=== PATIENT | male | born 1940 | race Caucasian/White ===

== ENCOUNTER 2016-12-30 15:45 | Emergency (ER) | payer MEDICARE, OTHER ==
[2016-12-30 15:55] VITALS: O2SAT 96
[2016-12-30] MEDS ORDERED: Sodium Chloride 0.9% 1000 ML 1,000 ML IV STA (15:57)
[2016-12-30 16:03] LABS: BASOPHIL % 0.3 % (0.0-0.4); Eosinophil % 2.8 % (0.00-5.0); Granulocytes % 74.9 % (36.0-66.0); Lymphocytes % 11.7 % (24.0-44.0); Mean Cell Volume 105.1 fl (78-100); Mean Platelet Volume 10.5 fl (6-9.5); Monocytes % 10.3 % (0.0-12.0); Platelet Count 167 K/mm3 (150-450); Red Blood Count 3.71 M/mm3 (4.1-5.6); Red Cell Distribution Width 14.4 % (11.5-14.0); White Blood Count 6.1 K/mm3 (4.0-10.5)
[2016-12-30] MEDS ORDERED: Sodium Chloride 0.9% 1000 ML 1,000 ML ONE (16:03)
[2016-12-30 16:10] LABS: Mean Corpuscular Hemoglobin 34.7 pg (26-32)
[2016-12-30 16:14] LABS: INR 2.3 (0.8-3.0); PROTIME 25.1 SECONDS (8.83-12.87)
--- NOTE | 2016-12-30 16:15 | ERPHSYRPT ---
- History of Present Illness Time Seen by Provider: 12/30/16 16:10 Source: patient, EMS Exam Limitations: no limitations Patient Subjective Stated Complaint: patietn was dizzy and fell at carwash, blacked out Triage Nursing Assessment: pt alert and oriented x3, skin tear on left elbow medics dressed it, skin tear and bump on right calf swelling and bruised out, patient states he lost consciousness and did urinate self when he became dizzy and fell at car wash. cellulitis bilAteral lower extremities Physician History: 76-year-old male with significant past medical history of atrial fibrillation, hypertension, congestive heart failure, coronary artery disease, atrial fibrillation was washing his car and suddenly he got dizzy and he almost passed out. Ambulance was called in and patient is transferred to the emergency room. Patient is alert, awake, oriented to time, place and person answer all the Mormon in the emergency room. Denies any headache, nausea, vomiting, diaphoresis or chest pain or dizziness. The last thing he remembered was he was washing the car and then he felt he is going to pass out. He has some bruises on his left elbow with some skin laceration as well as on his left leg. Timing/Duration: today Activities at Onset: activity (car wash) Severity of Pain-Max: none Severity of Pain-Current: none Modifying Factors: Improves With: nothing Nitro Today/Relief: no nitro taken today Aspirin Treatment Today: no aspirin today (patient on coumadin) Allergies/Adverse Reactions: No Known Drug Allergies Allergy (Unverified 07/06/16 16:44) Home Medications: Albuterol 2.5 mg/3 ml Neb [Proventil 2.5 mg/3 ml Neb] 2.5 mg IH BID PRN [History] Fluticasone/Vilanterol [Breo Ellipta 100-25 Mcg INH] 1 each IH DAILY 12/30/16 [ History] Levothyroxine Sodium 25 Mcg [Synthroid 25 Mcg] 25 mcg PO DAILY 12/30/16 [ History] Tamsulosin HCl 0.4 mg [Flomax 0.4 MG] 0.4 mg PO DAILY 12/30/16 [History] Torsemide [Demadex] 20 mg PO DAILY 12/30/16 [History] Valsartan [Diovan] 320 mg PO DAILY 12/30/16 [History] Warfarin Sodium 3 mg [Coumadin 3 MG] 3 mg PO UD 12/30/16 [History] Hx Tetanus, Diphtheria Vaccination/Date Given: Yes Hx Influenza Vaccination/Date Given: Yes Hx Pneumococcal Vaccination/Date Given: Yes Immunizations Up to Date: Yes - Review of Systems Constitutional: No Fever, No Chills Eyes: No Symptoms Ears, Nose, & Throat: No Symptoms Respiratory: No Cough, No Dyspnea Cardiac: No Chest Pain, No Edema, No Syncope Abdominal/Gastrointestinal: No Abdominal Pain, No Nausea, No Vomiting, No Diarrhea Genitourinary Symptoms: No Dysuria Musculoskeletal: Fall (syncopal episode), No Back Pain, No Neck Pain, No Deformity Skin: Cellulitis (both lower extrimities), Other (large hematoma on right leg, ) , No Rash Neurological: Dizziness, No Focal Weakness, No Sensory Changes Psychological: No Symptoms Endocrine: No Symptoms All Other Systems: Reviewed and Negative - Past Medical History Pertinent Past Medical History: Yes Cardiac History: Arrhythmia, Hypertension - Past Surgical History Past Surgical History: Yes Musculoskeletal: Orthopedic Surgery - Social History Smoking Status: Never smoker Drug Use: none Patient Lives Alone: No - Nursing Vital Signs Pulse Rate: 75 Respiratory Rate: 20 Pain Intensity: 0 - Physical Exam General Appearance: no apparent distress, alert Eye Exam: PERRL/EOMI, eyes nml inspection Ears, Nose, Throat Exam: normal ENT inspection, moist mucous membranes Neck Exam: normal inspection, non-tender, supple Respiratory Exam: crackles/rales, rhonchi, No respiratory distress Cardiovascular Exam: murmur (soft diastolic murmur left lower border), irregular , capillary refill 2-3 sec, No edema Gastrointestinal/Abdomen Exam: soft, No tenderness, No mass Back Exam: normal inspection, No CVA tenderness, No vertebral tenderness Extremity Exam: normal inspection, normal range of motion Neurologic Exam: alert, oriented x 3, cooperative, normal mood/affect, nml cerebellar function, sensation nml, No motor deficits Skin Exam: normal color, warm, dry Lymphatic Exam: No adenopathy SpO2: 96 Oxygen Delivery: Room Air - Course Nursing assessment & vital signs reviewed: Yes EKG Interpreted by Me: A-fib (controlled VR) Rhythm Strip: Atrial Fibrillation - Radiology Exams Chest X-ray Interpretation: Reviewed by me Ordered Tests: Active Orders 24 hr Category Date Time Status Piano And Organ Refinisher STAT Care 12/30/16 15:57 Active EKG-ER Only STAT Care 12/30/16 15:57 Active Oxygen-ED Only NASAL CANNULA 2 lpm Care 12/30/16 15:57 Active CHEST 1 VIEW (PORTABLE) Stat Exams 12/30/16 15:58 Taken CBC W DIFF Stat Lab 12/30/16 16:01 Completed CMP Stat Lab 12/30/16 16:01 Completed Lactic Acid Urgent Lab 12/30/16 15:57 Completed NT PRO BNP Stat Lab 12/30/16 16:01 Completed PROTIME WITH INR Stat Lab 12/30/16 16:01 Completed TROPONIN Q3H Lab 12/30/16 16:01 Completed TROPONIN Q3H Lab 12/30/16 19:00 Ordered TROPONIN Q3H Lab 12/30/16 22:00 Ordered TROPONIN Q3H Lab 12/31/16 01:00 Ordered TROPONIN Q3H Lab 12/31/16 04:00 Ordered Medication Summary Discontinued Medications Generic Name Dose Route Start Last Admin Trade Name Freq PRN Reason Stop Dose Admin Sodium Chloride 1,000 mls @ 999 mls/hr 12/30/16 15:57 12/30/16 16:08 Sodium Chloride 0.9% 1000 Ml IV 12/30/16 16:57 999 mls/hr .Q1H1M STA Administration Sodium Chloride Confirm 12/30/16 16:03 Sodium Chloride 0.9% 1000 Ml Administered 12/30/16 16:04 Dose 1,000 mls @ ud .ROUTE .STK-MED ONE Lab/Rad Data: Laboratory Result Diagrams 12/30/16 16:01 12/30/16 16:01 Laboratory Results 12/30/16 12/30/16 12/30/16 Range/Units 16:01 16:01 16:01 WBC (4.0-10.5) K/mm3 RBC (4.1-5.6) M/mm3 Hgb (12.5-18.0) gm/dl Hct (42-50) % MCV (78-100) fl MCH (26-32) pg MCHC (32-36) g/dl RDW (11.5-14.0) % Plt Count (150-450) K/mm3 MPV (6-9.5) fl Gran % (36.0-66.0) % Lymphocytes % (24.0-44.0) % Monocytes % (0.0-12.0) % Eosinophils % (0.00-5.0) % Basophils % (0.0-0.4) % Basophils # (0-0.4) INR 2.30 (0.8-3.0) Sodium 140 (136-145) mEq/L Potassium 4.4 (3.5-5.1) mEq/L Chloride 104 (98-107) mEq/L Carbon Dioxide 25.9 (21-32) mEq/L Anion Gap 14.2 (5-15) MEQ/L BUN 24 H (9-20) mg/dL Creatinine 1.22 (0.55-1.30) mg/dl Estimated GFR > 60 ML/MIN Glucose 104 (70-110) MG/DL Lactic Acid (0.4-2.0) Calcium 8.9 (8.5-10.1) mg/dL Total Bilirubin 1.2 H (0.2-1.0) mg/dL AST 29 (15-37) U/L ALT 28 (12-78) U/L Alkaline Phosphatase 103 (46-116) U/L Troponin I < 0.017 (0.000-0.056) ng/ml NT-Pro-B Natriuret Pep 1402 H (0-125) pg/ml Serum Total Protein 7.0 (6.4-8.2) gm/dL Albumin 3.5 (3.4-5.0) g/dL 12/30/16 12/30/16 Range/Units 16:01 15:57 WBC 6.1 (4.0-10.5) K/mm3 RBC 3.71 L (4.1-5.6) M/mm3 Hgb 12.9 (12.5-18.0) gm/dl Hct 39.0 L (42-50) % MCV 105.1 H (78-100) fl MCH 34.7 H (26-32) pg MCHC 33.1 (32-36) g/dl RDW 14.4 H (11.5-14.0) % Plt Count 167 (150-450) K/mm3 MPV 10.5 H (6-9.5) fl Gran % 74.9 H (36.0-66.0) % Lymphocytes % 11.7 L (24.0-44.0) % Monocytes % 10.3 (0.0-12.0) % Eosinophils % 2.8 (0.00-5.0) % Basophils % 0.3 (0.0-0.4) % Basophils # 0.02 (0-0.4) INR (0.8-3.0) Sodium (136-145) mEq/L Potassium (3.5-5.1) mEq/L Chloride (98-107) mEq/L Carbon Dioxide (21-32) mEq/L Anion Gap (5-15) MEQ/L BUN (9-20) mg/dL Creatinine (0.55-1.30) mg/dl Estimated GFR ML/MIN Glucose (70-110) MG/DL Lactic Acid 2.2 H (0.4-2.0) Calcium (8.5-10.1) mg/dL Total Bilirubin (0.2-1.0) mg/dL AST (15-37) U/L ALT (12-78) U/L Alkaline Phosphatase (46-116) U/L Troponin I (0.000-0.056) ng/ml NT-Pro-B Natriuret Pep (0-125) pg/ml Serum Total Protein (6.4-8.2) gm/dL Albumin (3.4-5.0) g/dL - Progress Progress: improved Air Movement: good Blood Culture(s) Obtained: No Antibiotics given: No Counseled pt/family regarding: lab results, diagnosis, need for follow-up (with his Oil Pipe Inspector Dr Bueno), rad results - Departure Time of Disposition: 17:26 Departure Disposition: Home Clinical Impression: Syncope, cardiogenic CHF (congestive heart failure), NYHA class II Qualifiers: Congestive heart failure type: combined Congestive heart failure chronicity: acute on chronic Qualified Code(s): I50.43 - Acute on chronic combined systolic (congestive) and diastolic (congestive) heart failure Atrial fibrillation Qualifiers: Atrial fibrillation type: chronic Qualified Code(s): I48.2 - Chronic atrial fibrillation Condition: Stable Critical Care Time: Yes Critical Care Time(excluding separately billable procedures): 30-74 minutes Referrals: CANDIDA CAPELLAN PLASTIC SHEETS SUPERVISOR [Primary Care Provider] - Instructions: Heart Failure Additional Instructions: Please continue all your home medications. Please follow up with your csr technician as soon as possible. Call your primary care physician and see him or her. If you cannot get hold of your csr technician's. Please follow the instructions given to you. Please take your medication as prescribed if given. If symptoms recur or get worse, come back to the emergency room if you cannot reach your primary care physician, or call your primary care physician for an appointment. Again if your symptoms get worse, come back to the emergency room. Thanks for visiting emergency room, and let us take care of you.
[2016-12-30 16:30] LABS: ALBUMIN 3.5 g/dL (3.4-5.0); ALKALINE PHOSPHATASE 103 U/L (46-116); ANION GAP 14.2 MEQ/L (5-15); BILIRUBIN,TOTAL 1.2 mg/dL (0.2-1.0); BLOOD UREA NITROGEN 24 mg/dL (9-20); CHLORIDE 104 mEq/L (98-107); Carbon Dioxide 25.9 mEq/L (21-32); Glucose 104 MG/DL (70-110); Potassium 4.4 mEq/L (3.5-5.1); SGOT/AST 29 U/L (15-37); SGPT/ALT 28 U/L (12-78); SODIUM 140 mEq/L (136-145)
[2016-12-30 17:12] VITALS: BP 160/40
[2016-12-30 17:26] VITALS: PULSE 75
--- NOTE | 2016-12-30 22:26 | XRAY ---
Indication: Dizziness. Comparison: None Portable chest hyperinflated with chronic interstitial lung markings. Blunting of both costophrenic angles either due to hyperinflation versus tiny pleural effusion/thickening. Remaining lungs clear. Heart within normal limits for AP portable technique. Bony thorax intact with mild osteopenia and degenerative changes. Impression: Nonacute chest with chronic features.
== END 2016-12-30 18:01 | disposition home or self-care (01) ==
LOC: ED 15:45
DX: I50.43 Acute on chronic combined systolic (congestive) and diastolic (congestive) heart failure (principal); I48.2 Chronic atrial fibrillation; R55 Syncope and collapse; R57.0 Cardiogenic shock; R42 Dizziness and giddiness; I10 Essential (primary) hypertension; I50.9 Heart failure, unspecified; J44.9 Chronic obstructive pulmonary disease, unspecified; Z79.899 Other long term (current) drug therapy; Z79.01 Long term (current) use of anticoagulants; L03.116 Cellulitis of left lower limb; L03.115 Cellulitis of right lower limb
CPT/HCPCS: 36415; 71010; 80053; 83605; 83880; 84484; 85025; 85610; 93005; 93041; 96360; 99284

== ENCOUNTER 2017-02-26 02:20 | Emergency (ER) | payer MEDICARE, OTHER ==
[2017-02-26 02:26] VITALS: BP 193/93; PULSE 67; O2SAT 97
[2017-02-26] MEDS ORDERED: Xylocaine 2% JELLY TOP ONE (02:32)
[2017-02-26 02:42] LABS: BASOPHIL % 0.2 % (0.0-0.4); Eosinophil % 0.6 % (0.00-5.0); Granulocytes % 85.1 % (36.0-66.0); Lymphocytes % 7.6 % (24.0-44.0); Mean Cell Volume 103.6 fl (78-100); Mean Corpuscular Hemoglobin 34.9 pg (26-32); Mean Platelet Volume 10.4 fl (6-9.5); Monocytes % 6.5 % (0.0-12.0); Platelet Count 177 K/mm3 (150-450); Red Blood Count 4.21 M/mm3 (4.1-5.6); Red Cell Distribution Width 13.3 % (11.5-14.0)
[2017-02-26 02:53] LABS: INR 2.57 (0.8-3.0)
[2017-02-26 03:02] LABS: ALBUMIN 3.6 g/dL (3.4-5.0); ALKALINE PHOSPHATASE 88 U/L (46-116); ANION GAP 12.1 MEQ/L (5-15); BLOOD UREA NITROGEN 32 mg/dL (9-20); CHLORIDE 106 mEq/L (98-107); Carbon Dioxide 26.7 mEq/L (21-32); Glucose 113 MG/DL (70-110); Potassium 4.3 mEq/L (3.5-5.1); SGOT/AST 30 U/L (15-37); SGPT/ALT 29 U/L (12-78); SODIUM 141 mEq/L (136-145); Total Protein 7.7 gm/dL (6.4-8.2)
[2017-02-26 03:14] LABS: ADD URINE CULTURE? NO (NO); Bacteria RARE /HPF (NEGATIVE); COMPLETE URINE MICROSCOPIC? YES; Collection Type CLEAN CATCH; Epithelial Cells FEW /HPF (FEW)
--- NOTE | 2017-02-26 03:26 | ERPHSYRPT ---
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 He has hx of constipation. No BM for three days. Was up tonite and attempting to have BM and felt plugged up with rectal discomfort. Unable to urinate since 10PM. Came to ER. No fever, vomiting, or abd pain. Takes coumadin for a fib. No back pain. No fall or injury. Timing/Duration: day(s) (3) Severity: severe Allergies/Adverse Reactions: No Known Drug Allergies Allergy (Verified 02/26/17 02:25) Home Medications: Albuterol 2.5 mg/3 ml Neb [Proventil 2.5 mg/3 ml Neb] 2.5 mg IH BID PRN [History] Fluticasone/Vilanterol [Breo Ellipta 100-25 Mcg INH] 1 each IH DAILY 12/30/16 [ History] Levothyroxine Sodium 25 Mcg [Synthroid 25 Mcg] 25 mcg PO DAILY 12/30/16 [ History] Tamsulosin HCl 0.4 mg [Flomax 0.4 MG] 0.4 mg PO DAILY 12/30/16 [History] Torsemide [Demadex] 20 mg PO DAILY 12/30/16 [History] Valsartan [Diovan] 320 mg PO DAILY 12/30/16 [History] Warfarin Sodium 3 mg [Coumadin 3 MG] 3 mg PO UD 12/30/16 [History] Hx Tetanus, Diphtheria Vaccination/Date Given: Yes Hx Influenza Vaccination/Date Given: Yes Hx Pneumococcal Vaccination/Date Given: Yes Immunizations Up to Date: Yes - Review of Systems Constitutional: No Fever, No Chills Eyes: No Symptoms Ears, Nose, & Throat: No Symptoms Respiratory: No Cough Cardiac: No Chest Pain Abdominal/Gastrointestinal: Constipation, No Abdominal Pain, No Nausea, No Vomiting, No Diarrhea Genitourinary Symptoms: No Dysuria Musculoskeletal: No Back Pain Skin: No Rash Neurological: No Headache All Other Systems: Reviewed and Negative - Past Medical History Pertinent Past Medical History: Yes Cardiac History: Arrhythmia, Hypertension - Past Surgical History Past Surgical History: Yes Musculoskeletal: Orthopedic Surgery - Social History Smoking Status: Never smoker Exposure to second hand smoke: Yes Drug Use: none Patient Lives Alone: No - Nursing Vital Signs Nursing Vital Signs: Initial Vital Signs Temperature 97.6 F Temperature Source Oral Pulse Rate 67 Respiratory Rate 24 Blood Pressure [Right Arm] 193/93 Pain Intensity 2 - Physical Exam General Appearance: alert, obese Eye Exam: PERRL/EOMI, other (some facial ecchymosis without bony tenderness) Ears, Nose, Throat Exam: moist mucous membranes Neck Exam: normal inspection, non-tender Respiratory Exam: normal breath sounds, lungs clear Cardiovascular Exam: regular rate/rhythm Gastrointestinal/Abdomen Exam: soft, No tenderness, No distention Male Genitalia Exam: normal genitalia Back Exam: other (large firm fecal impaction at rectum with brown stool) Neurologic Exam: alert, oriented x 3, cooperative, sensation nml, No motor deficits Skin Exam: warm, dry SpO2: 97 Oxygen Delivery: Room Air - Course Nursing assessment & vital signs reviewed: Yes Ordered Tests: Active Orders 24 hr Category Date Time Status Clean Catch Urine Specimen STAT Care 02/26/17 02:30 Active IV Insertion STAT Care 02/26/17 02:30 Active Nursing [Miscellaneous Nursing Order] ROUTINE Care 02/26/17 02:58 Active CBC W DIFF Stat Lab 02/26/17 02:39 Completed CMP Stat Lab 02/26/17 02:39 Completed PROTIME WITH INR Stat Lab 02/26/17 02:39 Completed UA W/ MICROSCOPIC Stat Lab 02/26/17 02:30 Completed Medication Summary Discontinued Medications Generic Name Dose Route Start Last Admin Trade Name Freq PRN Reason Stop Dose Admin Lidocaine HCl 1 ml 02/26/17 02:32 02/26/17 03:05 Xylocaine 2% Jelly TOP 02/26/17 02:33 1 ml STAT ONE Administration Lab/Rad Data: Laboratory Result Diagrams 02/26/17 02:39 02/26/17 02:39 Laboratory Results 02/26/17 02/26/17 02/26/17 Range/Units 02:39 02:39 02:39 WBC 9.0 (4.0-10.5) K/mm3 RBC 4.21 (4.1-5.6) M/mm3 Hgb 14.7 (12.5-18.0) gm/dl Hct 43.6 (42-50) % MCV 103.6 H (78-100) fl MCH 34.9 H (26-32) pg MCHC 33.7 (32-36) g/dl RDW 13.3 (11.5-14.0) % Plt Count 177 (150-450) K/mm3 MPV 10.4 H (6-9.5) fl Gran % 85.1 H (36.0-66.0) % Lymphocytes % 7.6 L (24.0-44.0) % Monocytes % 6.5 (0.0-12.0) % Eosinophils % 0.6 (0.00-5.0) % Basophils % 0.2 (0.0-0.4) % Basophils # 0.02 (0-0.4) INR 2.57 (0.8-3.0) Sodium 141 (136-145) mEq/L Potassium 4.3 (3.5-5.1) mEq/L Chloride 106 (98-107) mEq/L Carbon Dioxide 26.7 (21-32) mEq/L Anion Gap 12.1 (5-15) MEQ/L BUN 32 H (9-20) mg/dL Creatinine 1.20 (0.55-1.30) mg/dl Estimated GFR > 60 ML/MIN Glucose 113 H (70-110) MG/DL Calcium 9.4 (8.5-10.1) mg/dL Total Bilirubin 0.70 (0.2-1.0) mg/dL AST 30 (15-37) U/L ALT 29 (12-78) U/L Alkaline Phosphatase 88 (46-116) U/L Serum Total Protein 7.7 (6.4-8.2) gm/dL Albumin 3.6 (3.4-5.0) g/dL Ur Collection Type Urine Color (YELLOW) Urine Appearance (CLEAR) Urine pH (5-6) Ur Specific [place] (1.005-1.025) Urine Protein (Negative) Urine Glucose (UA) (NEGATIVE) mg/dL Urine Ketones (NEGATIVE) Urine Nitrite (NEGATIVE) Urine Bilirubin (NEGATIVE) Urine Urobilinogen (0-1) mg/dL Urine WBC (Auto) (NEGATIVE) Urine RBC (Auto) (0-5) Khadar/ul Urine Microscopic RBC (0-2) /HPF Ur Epithelial Cells (FEW) /HPF Urine Bacteria (NEGATIVE) /HPF Specimen Received 02/26/17 Range/Units 02:30 WBC (4.0-10.5) K/mm3 RBC (4.1-5.6) M/mm3 Hgb (12.5-18.0) gm/dl Hct (42-50) % MCV (78-100) fl MCH (26-32) pg MCHC (32-36) g/dl RDW (11.5-14.0) % Plt Count (150-450) K/mm3 MPV (6-9.5) fl Gran % (36.0-66.0) % Lymphocytes % (24.0-44.0) % Monocytes % (0.0-12.0) % Eosinophils % (0.00-5.0) % Basophils % (0.0-0.4) % Basophils # (0-0.4) INR (0.8-3.0) Sodium (136-145) mEq/L Potassium (3.5-5.1) mEq/L Chloride (98-107) mEq/L Carbon Dioxide (21-32) mEq/L Anion Gap (5-15) MEQ/L BUN (9-20) mg/dL Creatinine (0.55-1.30) mg/dl Estimated GFR ML/MIN Glucose (70-110) MG/DL Calcium (8.5-10.1) mg/dL Total Bilirubin (0.2-1.0) mg/dL AST (15-37) U/L ALT (12-78) U/L Alkaline Phosphatase (46-116) U/L Serum Total Protein (6.4-8.2) gm/dL Albumin (3.4-5.0) g/dL Ur Collection Type CLEAN CATCH Urine Color YELLOW (YELLOW) Urine Appearance SLIGHTLY CLOUDY (CLEAR) Urine pH 6.0 (5-6) Ur Specific [place] 1.010 (1.005-1.025) Urine Protein NEGATIVE (Negative) Urine Glucose (UA) NEGATIVE (NEGATIVE) mg/dL Urine Ketones NEGATIVE (NEGATIVE) Urine Nitrite NEGATIVE (NEGATIVE) Urine Bilirubin NEGATIVE (NEGATIVE) Urine Urobilinogen 0.2 (0-1) mg/dL Urine WBC (Auto) NEGATIVE (NEGATIVE) Urine RBC (Auto) TRACE-INTACT (0-5) Khadar/ul Urine Microscopic RBC 0-2 (0-2) /HPF Ur Epithelial Cells FEW (FEW) /HPF Urine Bacteria RARE (NEGATIVE) /HPF Specimen Received [id number] - Progress Progress Note: 02/26/17 03:23 Labs reviewed. Pt declines xray as he had one last fall. Manually disimpacted using lidocaine jelly. Large fecal impaction removed. He then had mineral oil enema and then had large BM on toilet. Able to urinate. Will release with constipation instr. No abd tenderness. Counseled pt/family regarding: lab results, diagnosis, need for follow-up - Departure Time of Disposition: 03:24 Departure Disposition: Home Clinical Impression: Constipation, Fecal impaction in rectum, Anticoagulation goal of INR 2.0 to 2.5 Condition: Stable Critical Care Time: No Referrals: CNADIDA CAPELLAN SOW FARM TECHNICIAN [Primary Care Provider] - Instructions: Constipation Additional Instructions: Use miralax/prune juice cocktail. Gradually add metamucil. Drink plenty of fluids. Return for abdominal pain, fever, vomiting or concerns. Follow up with SOW FARM TECHNICIAN
== END 2017-02-26 03:33 | disposition home or self-care (01) ==
LOC: ED 02:20
DX: K59.00 Constipation, unspecified (principal); K56.41 Fecal impaction; Z79.01 Long term (current) use of anticoagulants
CPT/HCPCS: 36000; 36415; 80053; 81000; 85025; 85610; 99284